=== PATIENT | female | born 1985 | race Caucasian/White ===

== ENCOUNTER 2017-07-12 14:33 | Emergency (ER) | payer BC ==
[~2017-07-12] VITALS: Ht 177.8 cm; Wt 84.4 kg
[~2017-07-12 14:33] MED LIST: AMBIEN10 MG PO; CYMBALTA60 MG PO; Cymbalta PO; FIORICET,ESG1 TABLET PO; MOTRIN800 MG PO; Motrin PO; NAMENDA10 MG PO; Normodyne,Trandate PO; PREFERA-OB1 TABLET PO; Percocet 5/325,Endoc PO; Roxicet,Percocet 5/3 PO; SEROQUEL100 MG PO
[2017-07-12 17:15] LABS: ADD MIUA? YES; BILIRUBIN NEGATIVE; BLOOD NEGATIVE; GLUCOSE (STRIP) NEGATIVE; KETONES NEGATIVE; LEUKOCYTES NEGATIVE; NITRITE NEGATIVE; PROTEIN (STRIP) NEGATIVE; SPECIFIC GRAVITY 1.013 (1.000-1.030); UROBILINOGEN 0.2 MG/DL (0.2-1.0)
[2017-07-12 17:16] LABS: COLOR DK YELLOW ((YELLOW))
[2017-07-12 17:21] LABS: BACTERIA RARE /HPF; CASTS NONE SEEN /LPF; CRYSTALS NONE SEEN; EPITHELIAL CELLS RARE /HPF; MUCUS NONE SEEN /LPF; RED BLOOD CELLS 0-5 /HPF (0-5); WHITE BLOOD CELLS 0-5 /HPF (0-5)
[2017-07-12 17:25] LABS: HEMATOCRIT 41.5 % (36.0-46.0); MCH 29.7 PG (29.0-34.0); MCV 89.8 FL (83-99); MEAN PLAT.VOLUME 10.4 uM^3 (9.5-12.4); PLATELET COUNT 294 K/uL (156-360); RBC DIS.WIDTH-CV 11.8 % (11.8-14.6); RBC DIS.WIDTH-SD 38.5 % (39-53); RED BLOOD COUNT 4.62 M/uL (3.80-5.20); WHITE BLOOD COUNT 5.3 K/uL (4.1-10.2)
[2017-07-12 17:35] LABS: CHLORIDE 107 mEq/L (99-109); POTASSIUM 3.4 mEq/L (3.7-5.4); SODIUM 142 mEq/L (136-147)
[2017-07-12 17:37] LABS: GLUCOSE 106 mg/dL (70-99)
[2017-07-12 17:39] LABS: ANION GAP 11 MEQ/L (2-14)
[2017-07-12 17:41] LABS: GFR ESTIMATE (CALCULATED) > 59 mL/min/
[2017-07-12 17:42] LABS: UREA NITROGEN (BUN) 15 mg/dL (9-23)
[2017-07-12 17:43] LABS: CREATINE KINASE 108 IU/L (1-294)
[2017-07-12 17:49] LABS: QUANTITATIVE HCG < 4.0 MIU/ML
[2017-07-12] MEDS ORDERED: ULTRACET1 TABLET PO (18:44)
[2017-07-12] MEDS ORDERED: MOTRIN600 MG PO (18:44)
[2017-07-12 19:30] VITALS: BP 122/73
[2017-07-13 10:27] LABS: LYME DISEASE SEROLOGY SCREEN NEGATIVE (NEGATIVE)
== END 2017-07-12 19:30 | disposition home or self-care (01) ==
LOC: EME 14:33
PROVIDERS: Physician Assistant
DX: R20.2 Paresthesia of skin (principal); M79.1 Myalgia; E87.6 Hypokalemia; F32.9 Major depressive disorder, single episode, unspecified; G47.33 Obstructive sleep apnea (adult) (pediatric)
CPT/HCPCS: 80048; 81003; 82550; 82607; 84443; 84702; 85027; 86618; 99281; 99283

== ENCOUNTER 2017-10-31 21:35 | Emergency (ER) | payer BC ==
[~2017-10-31] VITALS: Ht 177.8 cm; Wt 90.9 kg
[~2017-10-31 21:35] MED LIST changes: +MOTRIN600 MG PO; +ULTRACET1 TABLET PO
[2017-10-31 22:05] LABS: HEMATOCRIT 41.3 % (36.0-46.0); HEMOGLOBIN 13.5 G/DL (11.9-15.5); MCHC 32.7 G/DL (30.0-36.0); MCV 88.8 FL (83-99); PLATELET COUNT 280 K/uL (156-360); RBC DIS.WIDTH-CV 12.3 % (11.8-14.6); RBC DIS.WIDTH-SD 39.8 % (39-53); RED BLOOD COUNT 4.65 M/uL (3.80-5.20); WHITE BLOOD COUNT 6.9 K/uL (4.1-10.2)
[2017-10-31 22:18] LABS: CHLORIDE 102 mEq/L (99-109); POTASSIUM 3.5 mEq/L (3.7-5.4); SODIUM 140 mEq/L (136-147)
[2017-10-31 22:20] LABS: GLUCOSE 79 mg/dL (70-99)
[2017-10-31 22:24] LABS: CREATININE 0.8 mg/dL (0.6-1.3); GFR ESTIMATE (CALCULATED) > 59 mL/min/
[2017-10-31 22:25] LABS: UREA NITROGEN (BUN) 13 mg/dL (9-23)
[2017-10-31 22:29] LABS: TROP-I INTERPRETATION NEGATIVE; TROPONIN-I < 0.01 ng/mL (0.0-0.30)
[2017-10-31 22:34] LABS: D-DIMER ELISA < 150.00 ng/mLDDU (<230)
[2017-10-31 22:42] LABS: CREATINE KINASE 115 IU/L (1-294)
[2017-10-31 22:49] LABS: QUANTITATIVE HCG < 4.0 MIU/ML
[2017-11-01 01:19] LABS: TROP-I INTERPRETATION NEGATIVE; TROPONIN-I < 0.01 ng/mL (0.0-0.30)
[2017-11-01] MEDS ORDERED: INDOCIN50 MG PO (01:58)
[2017-11-01 02:19] VITALS: BP 113/76
== END 2017-11-01 02:33 | disposition home or self-care (01) ==
LOC: EME 21:35
PROVIDERS: Physician Assistant
DX: G62.9 Polyneuropathy, unspecified (principal); R07.89 Other chest pain; F32.9 Major depressive disorder, single episode, unspecified; G43.909 Migraine, unspecified, not intractable, without status migrainosus; Z79.891 Long term (current) use of opiate analgesic
CPT/HCPCS: 71046; 80048; 82550; 84484; 84702; 85027; 85379; 93005; 99281; 99284